=== PATIENT | female | born 1975 | race Two or more races ===

== ENCOUNTER 2023-10-16 18:11 | Emergency (ER) | payer OTHER ==
[~2023-10-16] VITALS: Ht 157.5 cm; Wt 128.2 kg
[2023-10-16 19:31] VITALS: BP 144/83; PULSE 86; RESP 18; O2SAT 99
== END 2023-10-16 22:26 | disposition left against medical advice (07) ==
LOC: ER 18:11
DX: M25.562 Pain in left knee (principal); Z53.21 Procedure and treatment not carried out due to patient leaving prior to being seen by health care provider